=== PATIENT | male | born 1965 | race Caucasian/White ===

== ENCOUNTER 2019-07-07 11:04 | Inpatient (IN) | payer MEDICAID ==
[~2019-07-07] VITALS: Ht 167.6 cm; Wt 77.1 kg
[~2019-07-07 11:04] MED LIST: METOPROLOL TART50 MG PO
[2019-07-07] MEDS ORDERED: NEURONTIN600 MG PO (11:11)
[2019-07-07] MEDS ORDERED: ADVIL200 MG PO (11:12)
[2019-07-07] MEDS ORDERED: ACETAMINOPHEN500 M1 PO (11:12)
[2019-07-07] MEDS ORDERED: METHOCARBANOL PO (11:12)
[2019-07-07] MEDS ORDERED: ZOLOFT50 MG PO (11:13)
[2019-07-07 11:45] LABS: BASOPHILS 0.1 % (0-2); EOSINOPHILS 0.5 % (0-7); HEMATOCRIT 44.2 % (42.0-54.0); HEMOGLOBIN 15.7 g/dL (13.5-17.5); IMMATURE GRANULOCYTES 0.3 % (0-5); LYMPHOCYTES 10.8 % (15-50); MCHC 35.5 g/dL (31.0-37.0); MCV 95.7 fL (80.0-100.0); MEAN PLATELET VOLUME 9.2 fL (7.4-10.4); MONOCYTES 7.9 % (2-11); NEUTROPHILS 80.4 % (40-80); PLATELET COUNT 232 10x3/uL (130-400); RBC 4.62 10x6/uL (4.20-6.10); RDW 12.4 % (11.5-14.5); WBC 13.9 10x3/uL (4.8-10.8)
[2019-07-07 12:19] LABS: CALC OSMOLALITY 276 mosm/kg (275-300); CALCIUM 9.1 mg/dL (8.5-10.1); CARBON DIOXIDE 26.1 mmol/L (21.0-32.0); CHLORIDE - SERUM 105 mmol/L (98-107); CREATININE - SERUM 0.7 mg/dL (0.6-1.3); GLUCOSE 98 mg/dL (74-106); POTASSIUM - SERUM 3.9 mmol/L (3.5-5.1); SODIUM 140 mmol/L (136-145); UREA NITROGEN 8 mg/dL (7-18); eGFR NON AFRICAN AMERICAN > 90 mL/min (90-120)
[2019-07-07 12:27] LABS: ALBUMIN 3.9 g/dL (3.4-5.0); ALKALINE PHOSPHATASE 73 U/L (46-116); ALT (SGPT) 23 U/L (10-68); AMYLASE - SERUM 63 U/L (25-115); BILIRUBIN - TOTAL 0.79 mg/dL (0.2-1.3); LIPASE 161 U/L (73-393); PROTEIN - SERUM 7.2 g/dL (6.4-8.2); TROPONIN-I < 0.017 ng/mL (0.000-0.060)
--- NOTE | 2019-07-07 12:30 | NUR ---
UPDATED PT ON POC: AWAITING BED IN ER
[2019-07-07 14:54] LABS: APPEARANCE CLEAR (CLEAR); COLOR YELLOW (YELLOW)
[2019-07-07 14:55] LABS: BILIRUBIN NEGATIVE (NEGATIVE); GLUCOSE NEGATIVE (NEGATIVE); KETONE NEGATIVE (NEGATIVE); NITRITE NEGATIVE (NEGATIVE); PROTEIN NEGATIVE (NEGATIVE); UROBILINOGEN NORMAL (NORMAL)
--- NOTE | 2019-07-07 18:00 | NUR ---
PT ACTIVATED CALL LIGHT TO REPORT ITCHING AT THE IV SITE ON THE RIGHT FOREARM, ARM IS RED, NO SIGNS OF INFILTRATION, LEVAQUIN INFUSING WITHOUT OCCLUSION. PT DENIES NUMBNESS OR TINGLING OF THE MOUTH OR TONGUE, ER PRIVIDER NOTIFIED OF ITCHING.
[2019-07-07 19:05] VITALS: BP 130/92
--- NOTE | 2019-07-07 19:05 | NUR ---
BEDSIDE REPORT HANDED OFF VIA SBAR FROM [place].
[2019-07-07 19:33] VITALS: BP 123/86
[2019-07-07 20:00] VITALS: BP 149/74
--- NOTE | 2019-07-07 20:37 | NUR ---
FLOOR NURSE CALLED BACK AND ROOM IS DIRTY WILL WAIT TO TRANSPORT.
[2019-07-07 23:19] VITALS: BP 91/61; BMI 27.5
[2019-07-08] VITALS: BP 124/79
--- NOTE | 2019-07-08 03:40 | NUR ---
IV INFILTRATED. NEW SITE TO LEFT FOREARM. OLD IV CATHETER WAS DCD WITH TIP INTACT.
[2019-07-08 04:00] VITALS: BP 118/73
[2019-07-08 07:25] LABS: CALC OSMOLALITY 270 mosm/kg (275-300); CALCIUM 9.1 mg/dL (8.5-10.1); CARBON DIOXIDE 22.9 mmol/L (21.0-32.0); CHLORIDE - SERUM 102 mmol/L (98-107); CREATININE - SERUM 0.8 mg/dL (0.6-1.3); GLUCOSE 81 mg/dL (74-106); MAGNESIUM - SERUM 1.7 mg/dL (1.8-2.4); PHOSPHOROUS 4.3 mg/dL (2.5-4.9); POTASSIUM - SERUM 3.7 mmol/L (3.5-5.1); SODIUM 137 mmol/L (136-145); UREA NITROGEN 8 mg/dL (7-18); eGFR NON AFRICAN AMERICAN > 90 mL/min (90-120)
[2019-07-08 07:28] LABS: INR 1.1 (0.85-1.17); PROTIME 13.7 SECONDS (11.6-15.0)
[2019-07-08 07:29] LABS: APTT 32.2 SECONDS (22.8-39.4)
[2019-07-08 07:55] LABS: HEMATOCRIT 38.8 % (42.0-54.0); HEMOGLOBIN 13.7 g/dL (13.5-17.5); LYMPHOCYTES 9.8 % (15-50); MCH 33.2 pg (26.0-34.0); MCHC 35.3 g/dL (31.0-37.0); MCV 93.9 fL (80.0-100.0); NEUTROPHILS 80.1 % (40-80); PLATELET COUNT 213 10x3/uL (130-400); RBC 4.13 10x6/uL (4.20-6.10); RDW 12.2 % (11.5-14.5)
--- NOTE | 2019-07-08 08:18 | NUR ---
PATIENT RECIEVED RESTING WITH HOB UP. PAIN TOLERABLE WITH MORPHINE. NPO FOR DIVERTICULITIS. CL IN REACH
[2019-07-08 08:30] VITALS: BP 133/78
--- NOTE | 2019-07-08 12:17 | MORECARE ---
CASE MANAGEMENT DISCHARGE SUMMARY PATIENT: MANSI CORTEZ UNIT: [id number] ADM DATE: 07/07/19 AGE: 54 : 65 SEX: M ROOM/BED: D.2204 AUTHOR: LESIA ANN PHYSICIAN: REFERRING PHYSICIAN: GERALD ROMANO MD DATE OF SERVICE: 07/08/19 Discharge Plan Patient Name: [facility] COR[facility] [facility] 1965 Planned Disposition: Anticipated Discharge Date: Discharge Date: Expected LOS: Initial Reviewer: [email or web address] Initial Review Date: 07/08/2019 Generated: 07/08/19 1:17 pm DCPIA - Discharge Planning Initial Assessment Updated by [email or web address]: Nely Eduardo on 07/08/19 12:15 pm * Is the patient Alert and Oriented? No * PCP [place] * Pharmacy [facility] * Preadmission Environment Home Alone * ADLs Independent * List name and contact numbers for known caregivers / representatives who currently or will assist patient after discharge: EDNA FREEMAN, MOTHER, . * Verbal permission to speak to the caregivers and representatives has been obtained from the patient. Yes Patient Name: MANSI CORTEZ Page [id number] at 1217 All edits/amendments must be made on the electronic document DICTATION DATE: 07/08/191216 HAND BUFFING WHEEL FORMER: DAY 07/08/19 1217 RPT#: [id number] DC DATE: STATUS: ADM IN [facility] [address] [place] [address] END OF REPORT
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
[2019-07-08 12:53] VITALS: BP 142/80
[2019-07-08 13:34] VITALS: Ht 167.6 cm; Wt 77.1 kg
--- NOTE | 2019-07-08 17:14 | NUR ---
PATIENT REPORTS ITCHING AT IV SITE AND UP FOREARM WITH LEVAQUIN INFUSING. INFUSION STOPED AND MARCIO LARA APN NOTIFIED, WITH ORDER TO CHANGE LEVAQUIN TO PO AND ADD BENADRYL PO Q6H. BENADRYL GIVEN WITH PATIENT REPORTING ITCHING IMPROVED.
[2019-07-08 17:22] VITALS: BP 132/87
[2019-07-08 20:00] VITALS: BP 126/62
[2019-07-09] VITALS: BP 110/69
[2019-07-09 04:00] VITALS: BP 119/62
[2019-07-09 07:55] LABS: BASOPHILS 0.1 % (0-2); EOSINOPHILS 0.9 % (0-7); IMMATURE GRANULOCYTES 0.2 % (0-5); LYMPHOCYTES 14.7 % (15-50); MCH 32.9 pg (26.0-34.0); MCHC 34.1 g/dL (31.0-37.0); MEAN PLATELET VOLUME 10.2 fL (7.4-10.4); MONOCYTES 10.6 % (2-11); NEUTROPHILS 73.5 % (40-80); RBC 4.26 10x6/uL (4.20-6.10); RDW 12.7 % (11.5-14.5); WBC 10.1 10x3/uL (4.8-10.8)
[2019-07-09 08:06] LABS: MCV 96.2 fL (80.0-100.0); PLATELET COUNT 256 10x3/uL (130-400)
[2019-07-09 08:19] VITALS: BP 115/69
[2019-07-09 08:20] LABS: CALC OSMOLALITY 273 mosm/kg (275-300); CARBON DIOXIDE 23.9 mmol/L (21.0-32.0); CHLORIDE - SERUM 105 mmol/L (98-107); CREATININE - SERUM 0.7 mg/dL (0.6-1.3); GLUCOSE 89 mg/dL (74-106); MAGNESIUM - SERUM 1.7 mg/dL (1.8-2.4); PHOSPHOROUS 3.4 mg/dL (2.5-4.9); POTASSIUM - SERUM 3.9 mmol/L (3.5-5.1); SODIUM 139 mmol/L (136-145); eGFR NON AFRICAN AMERICAN > 90 mL/min (90-120)
[2019-07-09 08:22] LABS: UREA NITROGEN 5 mg/dL (7-18)
[2019-07-09] MEDS ORDERED: LEVAQUIN750 MG PO (09:43)
[2019-07-09] MEDS ORDERED: FLAGYL500 MG PO (09:44)
--- NOTE | 2019-07-09 10:43 | NUR ---
PATIENT RECIEVED FROM PREVIOUS NURSE RESTING IN BED, REPORTS ABDOMINAL PAIN IMPROVED, REPORTS CHRONIC NECK PAIN. TOLERATING CL DIET,POSSIBLE DC IF TOLERATES LUNCH
--- NOTE | 2019-07-09 13:30 | NUR ---
IV REMOVED WITH NO REDNESS OR EDEMA AT SITE. DISCHARGE INSTRUCTIONS GIVEN WITH UNDERSTANDING VOICED. PATIENT TAKEN BY WHEELCHAIR TO PRIVATE CAR.
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
== END 2019-07-09 13:32 | disposition home or self-care (01) | DRG 392 ==
LOC: D.ER 11:04 → D.MS 18:10
PROVIDERS: Emergency Medicine; ADMIT Family Medicine; ATTEND Family Medicine
DX: K57.92 Diverticulitis of intestine, part unspecified, without perforation or abscess without bleeding (principal); F17.203 Nicotine dependence unspecified, with withdrawal; D72.829 Elevated white blood cell count, unspecified; I10 Essential (primary) hypertension; G47.00 Insomnia, unspecified; F32.9 Major depressive disorder, single episode, unspecified; Z90.49 Acquired absence of other specified parts of digestive tract